=== PATIENT | female | born 1990 | race Caucasian/White ===

== ENCOUNTER 2017-02-07 05:35 | Inpatient (IN) | payer OTHER ==
[~2017-02-07] VITALS: Ht 144.8 cm; Wt 65.4 kg
[~2017-02-07 05:35] MED LIST: PREN1TAB67 PO
[2017-02-07 05:44] VITALS: BP 104/71; PULSE 70; RESP 18
[2017-02-07 05:45] VITALS: Ht 144.8 cm; Wt 65.4 kg
[2017-02-07] MEDS ORDERED: FER325 PO (05:46)
[2017-02-07] MEDS ORDERED: LACTATED RINGER'S 1,000 ML IV ONE (06:30)
[2017-02-07] MEDS ORDERED: OXYTOCIN 30 UNITS/LR 500 ML BAG IV ONE (07:00)
--- NOTE | 2017-02-07 07:09 | RADRPT ---
PROCEDURE: US OB biophysical profile. CLINICAL INDICATION: decreased movements, vaginal bleeding TECHNIQUE: Multiple sonographic images of the pelvis were obtained. The images were reviewed on a PACS workstation. COMPARISON: No prior studies are available for comparison. FINDINGS: There is a single viable intrauterine gestation. Cardiac activity is present with 139 beats per min [place]. There is a vertex presentation. The placenta is anterior. There is no evidence of placental abruption. There is a borderline increased amount of amniotic fluid with an RAMÓN = 20 cm. Biophysical profile: movement 2/2 tone 2/2. breathing 2/2 RAMÓN 2/2 Total 10/15 RPTAT: AA . IMPRESSION: Normal biophysical profile. Borderline polyhydramnios. Anterior placenta with no evidence of abruption or previa. . .Elio Parish MD, MD Date Time Electronically viewed and signed by .Elio Parish MD, MD on 02/07/2017 07:09 .S/
[2017-02-07] MEDS ORDERED: LACTATED RINGER'S 1,000 ML IV SCH ×2 (07:30→08:26)
--- NOTE | 2017-02-07 08:25 | TRIAGE ---
OB Triage Datetime Report Generated by CPN: 02/07/2017 08:25 Datetime: 02/07/2017 08:16 Stage of : Labor Datetime: 02/07/2017 07:30 Labor Evaluation Frequency: 4-10 Monitor Mode: External Duration (sec)2399: 50-90 Quality: Mild Pattern: Normal: <= 5 Contractions in 10 Minutes Resting Tone [place]: Relaxed Heart Rate FHR Baseline Rate: 140 Monitor Mode: External US FHR Baseline Changes: No Baseline Change Variability: Moderate 6-25 bpm Accelerations: 15X15 Decelerations: None Category: Category I Pain Assessment Pain Scale: 1 Pain Presence: Intermittent Pain Type: Contraction Pain Location: Abdomen Pain Goal: 1 Pain Relief Measures: Comfort Measures Vaginal Exam Dilatation (cms): 1.0 Effacement (%): 40 Station: -4 Exam By: Lenka RN Membrane Status: Intact Datetime: 02/07/2017 07:00 Stage of : OB Triage Labor Evaluation Frequency: 1-8 Monitor Mode: External Duration (sec)2399: 40-100 Quality: Mild Pattern: Normal: <= 5 Contractions in 10 Minutes Resting Tone [place]: Relaxed Heart Rate FHR Baseline Rate: 140 Monitor Mode: External US Variability: Moderate 6-25 bpm Accelerations: 15X15 Datetime: 02/07/2017 06:51 Comments: EFM OFF Datetime: 02/07/2017 06:42 Stage of : OB Triage Datetime: 02/07/2017 06:00 Stage of : OB Triage Labor Evaluation Frequency: 2-5 Monitor Mode: External Duration (sec)2399: 40-110 Quality: Mild Pattern: Normal: <= 5 Contractions in 10 Minutes Resting Tone [place]: Relaxed Heart Rate FHR Baseline Rate: 135 Monitor Mode: External US Variability: Moderate 6-25 bpm Accelerations: 15X15 Decelerations: None Category: Category I Datetime: 02/07/2017 05:53 Vaginal Exam Dilatation (cms): 1.0 Effacement (%): 50 Station: -3 Exam By: SHOBHA RN Membrane Status: Intact Vaginal Bleeding: None Cervix, Consistency: Moderate Cervix, Position: Midposition Datetime: 02/07/2017 05:41 Time of Arrival: 02/07/2017 05:24 EGA: 38.4 Arrived By: Wheelchair Arrived From: Home Chief Complaint: PINK BLEEDING NOTED SINCE 0500 PT STATES PREVIOUS C/S X1 _ SHE DESIRES Movement: Decreased Contractions: Irregular Time Contractions Began: 02/06/2017 20:00 Contractions: 20 MINS Rupture of Membranes: Denies Vaginal Bleeding: Small Vaginal Discharge: Denies Recent Sexual Intercouse: Denies Abdominal Trauma: Not Applicable Patient Complaints: Other Time Provider Notified: 02/07/2017 06:14 Provider Notified: SHOAIB Initial Plan: EFM, VITALS, SVE Datetime: 02/07/2017 05:40 Assessment Type: Triage Maternal Assessment Level of Consciousness: Fully Conscious DTR's/Clonus: DTRs 2+; No Clonus Headache: Denies Blurred Vision: No Respiratory Effort: Unlabored; Regular Rhythm; Equal Expansion Breath Sounds, Left: Clear and Equal Breath Sounds, Right: Clear and Equal Nausea/Vomiting: Denies RUQ Epigastric Pain: Denies Lower Extremities Edema: None Degree: None Upper Extremities Edema: None Degree: None Facial Edema: None Temperature Route: Oral Fall Risk Assessment History of Falling: (0) No Secondary Diagnosis: (0) No Ambulatory Aid: (0) Bedrest/Nurse Assist IV Therapy: (0) No Gait: (0) Normal/Bedrest/Immobile Mental Status: (0) Oriented to Own Ability Fall Score: 0 Fall Risk Score Definition: No Risk: No action required Comment: PT PRESENTED SELF TO TRIAGE C/O OF PINK VAGINAL BLEEDING, IRREGULAR UC'S, DENIES LEAKING Pain Assessment Pain Scale: 0 Pain Presence: None/Denies Pain Type: N/A Pain Goal: 4 Datetime: 02/07/2017 05:37 Stage of : OB Triage Monitor Mode: Palpation Resting Tone [place]: Relaxed
[2017-02-07] MEDS ORDERED: LIDOCAINE 1% (MPF) 30 ML INJ INJ PRN (08:30)
[2017-02-07] MEDS ORDERED: MINERAL OIL LIGHT 10 ML VIAL TOP PRN (08:30)
[2017-02-07] MEDS ORDERED: BUTORPHANOL 2 MG INJ IV PRN (08:30)
[2017-02-07] MEDS ORDERED: OXYTOCIN 30 UNITS/LR 500 ML IV SCH ×2 (08:30)
[2017-02-07] MEDS ORDERED: IBUPROFEN 600 MG TAB PO PRN (08:30)
[2017-02-07] MEDS ORDERED: MISOPROSTOL 200 MCG TAB PR PRN ×2 (08:30→22:00)
[2017-02-07] MEDS ORDERED: METHYLERGONOVINE 0.2 MG INJ IM PRN ×2 (08:30→22:00)
[2017-02-07] MEDS ORDERED: CARBOPROST 250 MCG INJ IM PRN ×2 (08:30→22:00)
[2017-02-07] MEDS ORDERED: OXYTOCIN 30 UNITS/LR 500 ML IV PRN ×2 (08:30→22:00)
[2017-02-07 09:04] LABS: BASOPHILS % 0.3 % (0.0-2.0); EOSINOPHILS % 0.4 % (0.0-7.0); HEMATOCRIT 36.6 % (37.0-47.0); HEMOGLOBIN 12.4 g/dl (12.0-16.0); LYMPHOCYTES # 1.9 10^3/ul (0.8-2.9); LYMPHOCYTES % 27.9 % (15.0-51.0); MEAN CORPUSCULAR HEMOGLOBIN 31.1 pg (29.0-33.0); MEAN CORPUSCULAR HGB CONC 33.9 g/dl (32.0-37.0); MEAN CORPUSCULAR VOLUME 91.7 fl (82.0-101.0); MEAN PLATELET VOLUME 10.4 fl (7.4-10.4); MONOCYTE # 0.5 10^3/ul (0.3-0.9); MONOCYTES % 7.6 % (0.0-11.0); NEUTROPHIL # 4.4 10^3/ul (1.6-7.5); NEUTROPHILS % 63.4 % (39.0-77.0); PLATELET COUNT 209 10^3/UL (140-415); RED BLOOD COUNT 3.99 10^6/ul (4.20-5.40); RED CELL DISTRIBUTION WIDTH 12.8 % (11.5-14.5); WHITE BLOOD COUNT 6.9 10^3/ul (4.8-10.8)
[2017-02-07] MEDS ORDERED: AMPICILLIN 2 GM/NS (PMX) 100 ML ONE (09:16)
[2017-02-07] MEDS ORDERED: AMPICILLIN 2 GM/NS (PMX) 100 ML IVPB ONE (09:30)
[2017-02-07 09:43] LABS: INR 0.84; PROTIME 11.6 Sec (11.9-14.9); PT RATIO 0.9
--- NOTE | 2017-02-07 14:06 | RADRPT ---
PROCEDURE: US OB. CLINICAL INDICATION: Pelvic pain TECHNIQUE: Multiple sonographic images of the pelvis were obtained. The images were reviewed on a PACS workstation. COMPARISON: No prior studies are available for comparison. FINDINGS: There is a single viable intrauterine gestation. Cardiac activity is present with 158 beats per min [place]. There is a cephalic presentation. Measurements were made in order to determine age. The results are as follows: BPD =8.54 cm HC =31.54 cm AC =36.52 cm FL =6.67 cm. Estimated gestational age of approximately 36 weeks 1 day. The estimated date of delivery is 03/06/2017. The EFW = 3313 g 46.4% . The placenta is anterior grade II. There is no evidence for an abruption . There is a normal amount of amniotic fluid with an RAMÓN = 20 cm. IMPRESSION: Single viable intrauterine gestation of approximately 36 weeks 1 day. The estimated date of deliver y is 03/06/2017 . Borderline polyhydramnios .Marcus Melton MD, MD Date Time Electronically viewed and signed by .Marcus Melton MD, on 02/07/2017 14:06 .W/
[2017-02-07] MEDS ORDERED: CEFAZOLIN 2 GM/50 ML (PMX) 50 ML IVPB ONE (15:00)
[2017-02-07] MEDS ORDERED: OXYTOCIN 10 UNIT INJ ONE (16:05)
[2017-02-07] MEDS ORDERED: PHENYLephrine (100 MCG/ML) 5ML SYG ONE (16:05)
[2017-02-07] MEDS ORDERED: ONDANSETRON 4 MG INJ ONE (16:05)
[2017-02-07] MEDS ORDERED: morphine SULFATE/PF (10 MG/10 ML) INJ ONE (16:05)
--- NOTE | 2017-02-07 17:22 | HP ---
Date/Time of Note Date/Time of Note DATE: 02/07/17 TIME: 17:19 OB - History Hx of Present Free Text/Dictation 26-year-old female 3 para 2 admitted with complaint of labor pain at term Denies rupture of membrane or vaginal bleed Chief Complaint: Liver contraction Estimated Due Date: Feb 17, 2017 : 3 Para: 2 Care: Good Care Ultrasounds: Normal mid trimester US Obstetrical Complications: None Medical Complications: None Past Family/Social History * Past Medical, Surgical, Family and Obstetric Histories reviewed from chart. Blood Type: O+ Rubella: immune RPR/VDRL: Negative GBS Status: Negative HBsAG: Negative OB Admission Exam Vital Signs Vital Signs Vital Signs Date Time Temp Pulse Resp B/P Pulse Ox O2 Delivery O2 Flow Rate FiO2 02/07/17 05:44 98.4 70 18 104/71 Room Air Physical Exam HEENT: WNL Heart: Rhythm Normal Lungs: Clear, Equal Abdomen: WNL Extremities: Normal Reflexes: Normal Cervical Dilatation: None Effacement: 0% Station: -3 Membranes: Intact Heart Rate: 130's Accelerations: Accelerations Present Decelerations: No Decelerations Varibility: Marked Contractions on Admission: < 5 Minutes Apart Date/Time Contractions Began: February 07, 2017 at 5 6:00 in the morning Frequency of Contractions: Every 3 minutes Duration: Over 45 seconds Intensity: Moderate Last 72 hours Lab Results CBC & BMP 02/07/17 08:53 OB Assessment/Plan Other Assessment: Term gestation Labor pains Previous 1 Other plan: After discussion of possible danger of vaginal delivery after section and elected to have a repeat section STEVEN MCFADDEN MD Feb 07, 2017 17:22
--- NOTE | 2017-02-07 17:24 | OPR ---
Operative Report Planned Procedure Procedure date Feb 07, 2017 Procedure(s) Repeat delivery Performed by see signature line Chain Tender Df. Batres Anesthesiologist: MIGUEL DUMONT MD Pre-procedure diagnosis Term gestation Previous 1 Labor pains Anesthesia Type: spinal Post-Procedure Post-procedure diagnosis Status post repeat section Findings Live Baby in OT position Estimated Blood Loss: 500 - 600 mls Specimen(s) none Grafts/Implant(s) none Complication(s) none Pt Condition post procedure: stable Procedure Description Under satisfactory anaesthesia a Pfannenstiel incision was made two fingerbreadth above and parallel to the symphysis of pubis around the previous scar and previous scar was removed Incision was extended laterally to the border of the Recti muscles on either sides. Incision was carried down with sharp and blunt dissection until fascia was reached. Anterior Recti muscle fascia was incised in mid portion and incision extended laterally to the border of skin incision. Fascia was mobilized from muscle superiorly and Recti muscles were from midline using sharp and blunt dissection. Peritoneum was visualized; Avoiding bowel and bladder it was incised . Incision was extended superiorly and inferiorly. Bladder blade was placed. Posterior peritoneum covering the lower segment of the uterus and lower segment of the uterus were incised.Low transverse uterine incision was made on lower segment of the uterus. Incision extended laterally to the border of Round Lig. on either sides and baby was delivered from OT. position . Amniotic fluid appeared clear. Cord blood was obtained and cord had 3 vessels . Placenta was delivered spontaneously and appeared intact and complete. Intrauterine cavity was rubbed with a laparotomy sponge. Uterine incision was closed in 2 layers using running stitches of No1 Monocryl. Hemostasis appeared secure. Ovaries and Fallopian tubes were within normal limits. .Announcing needle, lap sponge and instrument count to be correct abdomen was closed in layers as follows: Peritoneum and Recti muscles with running stitches of 20 Vicryl. Fascia with running stitch of No 1 PDS. Subcutaneous tissue with running stitches of 20 Chromic and skin was closed using brock. Patient tolerated the procedure well and was transferred to [facility] in good condition. STEVEN MCFADDEN MD Feb 07, 2017 17:24
[2017-02-07] MEDS ORDERED: VANCOMYCIN 1 GM (PMX) 250 ML IVPB SCH ×2 (17:30)
[2017-02-07] MEDS ORDERED: NALOXONE (0.4 MG/ML) INJ IV PRN (18:00)
[2017-02-07] MEDS ORDERED: morphine 2 MG INJ IV PRN (18:00)
[2017-02-07] MEDS ORDERED: DIPHENHYDRAMINE 50 MG INJ IV PRN (18:00)
[2017-02-07] MEDS ORDERED: ONDANSETRON 4 MG INJ IV PRN (18:00)
[2017-02-07] MEDS: KETOROLAC 30 MG INJ IV PRN (19:57)
[2017-02-07 21:20] VITALS: BP 117/62; PULSE 78; RESP 18
[2017-02-07] MEDS ORDERED: NA PHOSPHATE/BIPHOS 133 ML ENEMA PR PRN (22:00)
[2017-02-07] MEDS: IBUPROFEN 800 MG TAB PO SCH (22:00)
[2017-02-07] MEDS ORDERED: LANOLIN 7 GM TUBE TOP PRN (22:00)
[2017-02-07] MEDS: LACTATED RINGER'S 1,000 ML IV SCH (23:14)
[2017-02-07] MEDS: CEFAZOLIN 2 GM/50 ML (PMX) 50 ML IV SCH (23:15)
[2017-02-08 03:30] VITALS: BP 104/57; PULSE 89; RESP 17
[2017-02-08] MEDS: CEFAZOLIN 2 GM/50 ML (PMX) 50 ML IV SCH ×2 (05:37→14:35)
[2017-02-08] MEDS: KETOROLAC 30 MG INJ IV PRN ×2 (05:37→15:43)
[2017-02-08] MEDS: IBUPROFEN 800 MG TAB PO SCH ×3 (06:00→21:30)
[2017-02-08] MEDS: CLINDAMYCIN 300 MG CAP PO SCH ×3 (06:00→18:32)
[2017-02-08] MEDS: LACTATED RINGER'S 1,000 ML IV SCH ×3 (06:35→19:36)
[2017-02-08 08:00] VITALS: BP 92/51; PULSE 80; RESP 18
[2017-02-08] MEDS ORDERED: BISACODYL 10 MG SUPP PR ONE (10:00)
[2017-02-08 12:00] VITALS: BP 110/60; PULSE 72; RESP 18
[2017-02-08] MEDS: SENNA/DOCUSATE NA (8.6MG/50MG) TAB PO SCH ×2 (14:34→21:30)
[2017-02-08 15:57] LABS: BASOPHILS % 0.1 % (0.0-2.0); EOSINOPHILS % 0.2 % (0.0-7.0); HEMATOCRIT 30.8 % (37.0-47.0); HEMOGLOBIN 10.9 g/dl (12.0-16.0); LYMPHOCYTES # 1.8 10^3/ul (0.8-2.9); MEAN CORPUSCULAR HEMOGLOBIN 32.2 pg (29.0-33.0); MEAN CORPUSCULAR HGB CONC 35.4 g/dl (32.0-37.0); MEAN CORPUSCULAR VOLUME 90.9 fl (82.0-101.0); MONOCYTE # 0.8 10^3/ul (0.3-0.9); MONOCYTES % 9.2 % (0.0-11.0); NEUTROPHIL # 6.1 10^3/ul (1.6-7.5); NEUTROPHILS % 70.2 % (39.0-77.0); PLATELET COUNT 179 10^3/UL (140-415); RED BLOOD COUNT 3.39 10^6/ul (4.20-5.40); WHITE BLOOD COUNT 8.7 10^3/ul (4.8-10.8)
[2017-02-08 16:00] VITALS: BP 93/63; PULSE 18; RESP 18
[2017-02-08] MEDS ORDERED: HYDROCODONE/APAP (5/325) TAB PO PRN (16:15)
[2017-02-08] MEDS ORDERED: OXYCODONE/ACETAMINOPHEN (5/325) TAB PO PRN (16:15)
[2017-02-08 19:45] VITALS: BP 110/68; PULSE 79; RESP 19
[2017-02-09] MEDS: CLINDAMYCIN 300 MG CAP PO SCH ×5 (00:17→23:37)
[2017-02-09 03:45] VITALS: BP 107/72; PULSE 74; RESP 19
[2017-02-09] MEDS: LACTATED RINGER'S 1,000 ML IV SCH (05:31)
[2017-02-09] MEDS: IBUPROFEN 800 MG TAB PO SCH ×3 (05:31→21:41)
[2017-02-09 08:35] VITALS: BP 103/73; PULSE 75; RESP 18
[2017-02-09] MEDS ORDERED: INFLUENZA VIRUS VACCINE 0.5 ML (DISPENSING) IM* ONE (09:00)
[2017-02-09] MEDS: SENNA/DOCUSATE NA (8.6MG/50MG) TAB PO SCH ×2 (09:11→21:41)
[2017-02-09 09:17] LABS: BASOPHILS % 0.2 % (0.0-2.0); EOSINOPHILS # 0.1 10^3/ul (0.0-0.5); EOSINOPHILS % 0.5 % (0.0-7.0); HEMATOCRIT 31.1 % (37.0-47.0); HEMOGLOBIN 10.7 g/dl (12.0-16.0); LYMPHOCYTES # 1.8 10^3/ul (0.8-2.9); LYMPHOCYTES % 17.8 % (15.0-51.0); MEAN CORPUSCULAR HEMOGLOBIN 31.6 pg (29.0-33.0); MEAN CORPUSCULAR HGB CONC 34.4 g/dl (32.0-37.0); MEAN CORPUSCULAR VOLUME 91.7 fl (82.0-101.0); MEAN PLATELET VOLUME 10.1 fl (7.4-10.4); MONOCYTE # 0.7 10^3/ul (0.3-0.9); MONOCYTES % 6.7 % (0.0-11.0); NEUTROPHIL # 7.6 10^3/ul (1.6-7.5); NEUTROPHILS % 74.5 % (39.0-77.0); PLATELET COUNT 173 10^3/UL (140-415); RED BLOOD COUNT 3.39 10^6/ul (4.20-5.40); RED CELL DISTRIBUTION WIDTH 13.1 % (11.5-14.5); WHITE BLOOD COUNT 10.3 10^3/ul (4.8-10.8)
--- NOTE | 2017-02-09 14:13 | PN ---
Date/Time of Note Date/Time of Note DATE: 02/09/17 TIME: 14:13 Assessment/Plan VTE Prophylaxis VTE Prophylaxis Intervention: ambulation Lines/Catheters IV Catheter Type (from Nrsg): Peripheral IV Assessment/Plan Assessment/Plan Status post postop day 1 Advance diet and ambulate Continue to monitor vital signs Subjective 24 Hr Interval Summary No bowel movement Passing flatus Constitutional: BM, ambulates, flatus, improved, no complaints, urine output Pain Control: well controlled Exam/Review of Systems Vital Signs Vitals Vital Signs Date Time Temp Pulse Resp B/P Pulse Ox O2 Delivery O2 Flow Rate FiO2 02/09/17 08:35 98.3 75 18 103/73 Room Air 02/08/17 16:03 97 21 Intake and Output 02/08/17 02/08/17 02/09/17 15:00 23:00 07:00 Output Total 800 ml 800 ml Balance -800 ml -800 ml Exam Free Text/Dictation Abdomen is soft and not distended Incision is covered Constitutional: alert, oriented, well developed Psych: nl mood/affect, no complaints Head: atraumatic, normocephalic Eyes: EOMI, nl conjunctiva, nl lids, nl sclera ENMT: mucosa pink and moist, nl external ears & nose, nl lips & teeth, nl nasal mucosa & septum Neck: non-tender, supple Respiratory: clear to auscultation, normal air movement Cardiovascular: nl pulses, regular rate and rhythm Gastrointestinal: nl liver, spleen, non-tender, soft Musculoskeletal: nl extremities to inspection, nl gait and stance Extremities: normal pulses Neurological: 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
--- NOTE | 2017-02-09 14:15 | DS ---
Date/Time of Note Date/Time of Note Home following DATE: 02/09/17 TIME: 14:14 Obstetrical Discharge Record Final Diagnosis Final Diagnosis: Term delivered Other Final Diagnosis Status post repeat Section Section: Repeat Complications Augmentation: No Induction: No Condition on Discharge Physical Assessment Last Vitals: See nurse's note Voiding: Yes Bowel Movement: Yes Breast: Soft, non-tender, Filling Fundus: Firm Abdomen and Incision: Abdomen is soft bowel sounds present Incision is without induration and or erythema Episiotomy: Not applicable Calf Tenderness: No Patient Condition: Good STEVEN MCFADDEN MD Feb 09, 2017 14:15
--- NOTE | 2017-02-09 14:17 | DS ---
Date/Time of Note Date/Time of Note DATE: 02/09/17 TIME: 14:16 Discharge Summary Admission/Discharge Info Admit Date/Time Feb 07, 2017 at 07:54 Discharge Date/Time February 09 or 2016 Discharge Diagnosis Status post delivery Patient Condition: Good Procedures Repeat section Hx of Present Illness 26-year-old female underwent repeat section in labor Hospital Course Uncomplicated Home Meds Reported Medications Ferrous Sulfate* (Ferrous Sulfate*) 325 Mg Tabec, 325 MG PO DAILY, TAB 02/07/17 Vits W-Ca,Fe,Fa(<1MG) ( Formula) 1 Each Tablet, 1 EACH PO DAILY , #1 02/02/13 Follow-up Plan To 3 days in clinic for staple removal Primary Care Provider Not On Staff Doctor Time spent on discharge: > 30 minutes Pending Labs Laboratory Tests Test 02/08/17 15:25 02/09/17 08:51 02/09/17 08:57 White Blood Count 8.710^3/ul (4.8-10.8) 10.310^3/ul (4.8-10.8) Red Blood Count 3.3910^6/ul (4.20-5.40) 3.3910^6/ul (4.20-5.40) Hemoglobin 10.9g/dl (12.0-16.0) 10.7g/dl (12.0-16.0) Hematocrit 30.8% (37.0-47.0) 31.1% (37.0-47.0) Mean Corpuscular Volume 90.9fl (82.0-101.0) 91.7fl (82.0-101.0) Mean Corpuscular Hemoglobin 32.2pg (29.0-33.0) 31.6pg (29.0-33.0) Mean Corpuscular Hemoglobin Concent 35.4g/dl (32.0-37.0) 34.4g/dl (32.0-37.0) Red Cell Distribution Width 13.0% (11.5-14.5) 13.1% (11.5-14.5) Platelet Count 27769^3/UL (140-415) 69488^3/UL (140-415) Mean Platelet Volume 10.0fl (7.4-10.4) 10.1fl (7.4-10.4) Neutrophils % 70.2% (39.0-77.0) 74.5% (39.0-77.0) Lymphocytes % 20.0% (15.0-51.0) 17.8% (15.0-51.0) Monocytes % 9.2% (0.0-11.0) 6.7% (0.0-11.0) Eosinophils % 0.2% (0.0-7.0) 0.5% (0.0-7.0) Basophils % 0.1% (0.0-2.0) 0.2% (0.0-2.0) Nucleated Red Blood Cells % 0.0/100WBC (0.0-0.0) 0.0/100WBC (0.0-0.0) Neutrophils # 6.110^3/ul (1.6-7.5) 7.610^3/ul (1.6-7.5) Lymphocytes # 1.810^3/ul (0.8-2.9) 1.810^3/ul (0.8-2.9) Monocytes # 0.810^3/ul (0.3-0.9) 0.710^3/ul (0.3-0.9) Eosinophils # 0.010^3/ul (0.0-0.5) 0.110^3/ul (0.0-0.5) Basophils # 0.010^3/ul (0.0-0.1) 0.010^3/ul (0.0-0.1) Nucleated Red Blood Cells # 0.010^3/ul (0.0-0.0) 0.010^3/ul (0.0-0.0) Hepatitis B Surface Antigen NEGATIVE (NEGATIVE) STEVEN MCFADDEN MD Feb 09, 2017 14:17
--- NOTE | 2017-02-09 14:18 | PD.PPDC ---
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
[2017-02-09] MEDS ORDERED: IBUP800T25 PO (14:19)
[2017-02-09 16:20] VITALS: BP 113/71; PULSE 71; RESP 16
[2017-02-09 20:00] VITALS: BP 117/77; PULSE 74; RESP 20
[2017-02-10 03:18] VITALS: BP 115/65; PULSE 70; RESP 20
[2017-02-10] MEDS: IBUPROFEN 800 MG TAB PO SCH ×2 (05:44→14:12)
[2017-02-10] MEDS: CLINDAMYCIN 300 MG CAP PO SCH ×2 (05:45→12:44)
[2017-02-10 08:00] VITALS: BP 113/73; PULSE 68; RESP 18
[2017-02-10] MEDS ORDERED: MEASLES,MUMPS,RUBELLA VACCINE INJ SC* ONE (09:00)
[2017-02-10] MEDS ORDERED: DIPHTH/TET/ACEL PERTUSS (ADULT) 0.5 ML VIAL IM* ONE (09:00)
[2017-02-10] MEDS: SENNA/DOCUSATE NA (8.6MG/50MG) TAB PO SCH (10:04)
== END 2017-02-10 17:15 | disposition home or self-care (01) | DRG 766 ==
LOC: OBT 05:35 → L-D 05:36 → OBT 07:40 → L-D 07:54 → PP1 20:42
PROVIDERS: ADMIT Obstetrics & Gynecology; ATTEND Obstetrics & Gynecology
PROC: 10D00Z1 Extraction of Products of Conception, Low, Open Approach (ICD-10-PCS; principal; 2017-02-07 16:45)
PROC: 3E0234Z Introduction of Serum, Toxoid and Vaccine into Muscle, Percutaneous Approach (ICD-10-PCS; 2017-02-09)
PROC: 3E0234Z Introduction of Serum, Toxoid and Vaccine into Muscle, Percutaneous Approach (ICD-10-PCS; 2017-02-10)
DX: O34.219 Maternal care for unspecified type scar from previous cesarean delivery (principal); Z23 Encounter for immunization; Z37.0 Single live birth; Z3A.38 38 weeks gestation of pregnancy
CPT/HCPCS: 36415; 76815; 76818; 85025; 85610; 85730; 86592; 86900; 86901; 87340; 90686; 90715; 94760; 96360; 99464; G0463; J0290; J0690; J1885; J2274; J2370; J2405; J2590; J3370; J7120

== ENCOUNTER 2018-10-04 18:28 | Emergency (ER) | payer OTHER ==
[~2018-10-04] VITALS: Ht 147.3 cm; Wt 57.7 kg
[~2018-10-04 18:28] MED LIST changes: +FER325 PO; +IBUP-1544 PO
[2018-10-04 18:36] VITALS: Ht 147.3 cm; Wt 57.7 kg
[2018-10-04] MEDS ORDERED: KETOROLAC 60 MG INJ IM STA (19:25)
[2018-10-04] MEDS ORDERED: PROM5SYR2 PO (19:26)
[2018-10-04] MEDS ORDERED: IBUP-1542 PO (19:26)
[2018-10-04] MEDS ORDERED: PROMETHAZINE/CODEINE 5ML CUP PO ONE (19:30)
--- NOTE | 2018-10-04 19:47 | ERD ---
ER Documentation Chief Complaint Chief Complaint sore throat with head and back pain x 5 days HPI 28 female presents with complaint of sore throat and cough for the past 5 days. States that she coughs her stomach hurts as well. Patient denies any fevers. Patient denies any treatments. Patient denies any abdominal pain, nausea, vomiting, diarrhea, headaches, photophobia, trismus, drooling. ROS All systems reviewed and are negative except as per history of present illness. Medications Home Meds Active Scripts Promethazine HCl/Codeine (Prometh-Codein 6.25-10 mg/5 ml) 5 Ml Syrup, 5 ML PO Q4, #4 OZ Prov:AMADOR KAUR 10/04/18 Ibuprofen* (Motrin*) 600 Mg Tab, 600 MG PO Q6, #30 TAB Prov:AMADOR KAUR 10/04/18 Ibuprofen* (Ibuprofen*) 800 Mg Tablet, 800 MG PO Q8, #30 TAB 0 Refills Prov:STEVEN MCFADDEN MD 02/09/17 Reported Medications Ferrous Sulfate* (Ferrous Sulfate*) 325 Mg Tabec, 325 MG PO DAILY, TAB 02/07/17 Vits W-Ca,Fe,Fa(<1MG) ( Formula) 1 Each Tablet, 1 EACH PO DAILY, #1 02/02/13 Allergies Allergies: Coded Allergies: No Known Allergy (Unverified , 10/04/18) PMhx/Soc History of Surgery: No Anesthesia Reaction: No Hx Neurological Disorder: No Hx Respiratory Disorders: No Hx Cardiac Disorders: No Hx Psychiatric Problems: No Hx Miscellaneous Medical Probl: No Hx Alcohol Use: No Hx Substance Use: No Hx Tobacco Use: No Smoking Status: Never smoker FmHx Family History: No diabetes, No coronary disease, No other Physical Exam Vitals Vital Signs Date Temp Pulse Resp B/P (MAP) Pulse Ox O2 O2 Flow FiO2 Time Delivery Rate 10/04/18 99.4 77 18 128/68 96 18:36 (88) Physical Exam Const: No acute distress Head: Atraumatic Eyes: Normal Conjunctiva ENT: Normal External Ears, Nose and Mouth. Tonsils are nonedematous erythematous bilateral with no exudates. Uvula is midline. There are no peritonsillar masses noted. Neck: Full range of motion. No meningismus. No cervical lymphadenopathy. Resp: Clear to auscultation bilaterally Cardio: Regular rate and rhythm, no murmurs Abd: Soft, non tender, non distended. Normal bowel sounds Skin: No petechiae or rashes Back: No midline or flank tenderness Ext: No cyanosis, or edema Neur: Awake and alert Psych: Normal Mood and Affect Results 24 hrs Laboratory Tests Test 10/04/18 19:31 POC Beta HCG, Qualitative NEGATIVE Current Medications Medications Dose Sig/Nabor Start Time Status Last (Trade) Ordered Route PRN Stop Time Admin Dose Reason Admin Ketorolac 60 mg ONCE STAT 10/04/18 DC Tromethamine IM 19:25 (Toradol) 10/04/18 19:26 Promethazine 10 ml ONCE ONCE 10/04/18 DC HCl/ PO 19:30 Codeine 10/04/18 19:31 (Phenergan/ Codeine) Procedures/MDM MDM: Patient's presentation is with viral pharyngitis. Patient does not meet Centor score for strep test. I have low suspicion for epiglottitis, peritonsilar abscess, ludwigs angina, retropharyngeal abscess, or other emergent etiologies based on patients exam and history. patient given Rx for ibuprofen as well as Brethine DM for cough at this time, patient is stable for discharge and outpatient management. I have instructed the patient to follow-up with his/her primary care physician in 1-2 days. I have discussed with the patient the possibility of needing to see a specialist for further workup and imaging studies if symptoms persist. I have instructed the patient to promptly return to the ER for any new or worsening symptoms including but not limited to increased pain, fever, nausea, vomiting, weakness or LOC. The patient and/or family expressed understanding of and agreement with this plan. All questions were answered. Home care instructions were provided. Communication with patient both during the exam and instructions for discharge were performed with using a batteryman . Patient gave verbal confirmation to the practitioner, through the batteryman, that they understood everything that was being said to them. DISCLAIMER: Inadvertent spelling and grammatical errors are likely due to EHR/dictation software use and do not reflect on the overall quality of patient care. Also, please note that the electronic time recorded on this note does not necessarily reflect the actual time of the patient encounter. Departure Diagnosis: Primary Impression: Sore throat Additional Impression: URI (upper respiratory infection) Condition: Stable Patient Instructions: When You Have a Sore Throat, Self-Care for Sore Throats, Preventing Common Respiratory Infections Referrals: [facility] YOU HAVE RECEIVED A MEDICAL SCREENING EXAM AND THE RESULTS INDICATE THAT YOU DO NOT HAVE A CONDITION THAT REQUIRES URGENT TREATMENT IN THE EMERGENCY DEPARTMENT. FURTHER EVALUATION AND TREATMENT OF YOUR CONDITION CAN WAIT UNTIL YOU ARE SEEN IN YOUR DOCTORS OFFICE WITHIN THE NEXT 1-2 DAYS. IT IS YOUR RESPONSIBILITY TO MAKE AN APPOINTMENT FOR FOLOW-UP CARE. IF YOU HAVE A PRIMARY DOCTOR --you should call your primary doctor and schedule an appointment IF YOU DO NOT HAVE A PRIMARY DOCTOR YOU CAN CALL OUR PHYSICIAN REFERRAL HOTLINE AT IF YOU CAN NOT AFFORD TO SEE A PHYSICIAN YOU CAN CHOSE FROM THE FOLLOWING [facility] [address] [facility] [address] [facility] [facility] [address] [facility] [address] [facility] [address] [facility] [address] Additional Instructions: FOLLOW UP WITH YOUR PRIMARY CARE PHYSICIAN TOMORROW.Return to this facility if you are not improving as expected. AMADOR KAUR Oct 04, 2018 19:47
[2018-10-04 19:54] VITALS: BP 115/72; PULSE 71; RESP 18
== END 2018-10-04 19:55 | disposition home or self-care (01) ==
LOC: FTE 18:28
DX: J02.9 Acute pharyngitis, unspecified (principal); J06.9 Acute upper respiratory infection, unspecified
CPT/HCPCS: 81025; 96372; J1885; Z7502; Z7610